=== PATIENT | female | born 1925 | race Caucasian/White ===

== ENCOUNTER 2016-05-21 08:16 | Emergency (ER) | payer MEDICARE ==
[2016-05-21 08:35] VITALS: BP 145/51
--- NOTE | 2016-05-21 08:53 | ED ---
Head Injury - HPI Summary HPI Summary: 5 falls in the last few months when she "forgets to use her walker." She fell a few weeks ago and she has had some right parietal pain and two days ago she fell and hit Left forehead. no neurologic deficits or vision changes. no blood thinners including no aspirin. - History Of Current Complaint Chief Complaint: UCHeadInjury Stated Complaint: HEAD INJURY/FALL Time Seen by Provider: 05/21/16 08:46 Hx Obtained From: Patient, Family/[employer] Mechanism Of Injury: Fall From A Standing Position Onset/Duration: Traumatic Onset of Pain: Immediate Severity Currently: Mild Severity Initially: Moderate Location of Head Injury: Frontal, Parietal Character: Dull Aggravating Factor(s): Movement Alleviating Factor(s): Rest Associated Signs And Symptoms: Negative, Memory Loss - she has had some memory loss but this is not a sudden onset issue related to the falls. - Risk Factors SDH Risk Factor: Negative - Allergies/Home Medications Allergies/Adverse Reactions: Allergies Allergy/AdvReac Type Severity Reaction Status Date / Time No Known Allergies Allergy Verified 11/13/13 08:35 PMH/Surg Hx/FS Hx/Imm Hx Endocrine/Hematology History: Reports: Hx Thyroid Disease Cardiovascular History: Reports: Hx Hypertension Musculoskeletal History: Denies: Hx Rheumatoid Arthritis, Hx Osteoporosis - Cancer History Cancer Type, Location and Year: breast cancer Hx Chemotherapy: No Hx Radiation Therapy: No - Surgical History Surgery Procedure, Year, and Place: gallbladder, R masectomy Infectious Disease History: No Infectious Disease History: Denies: Traveled Outside the [place] in Last 30 Days - Family History Known Family History: Positive: None - no related family history to this fall. - Social History Occupation: Retired Lives: With Family Alcohol Use: None Substance Use Type: Reports: None Smoking Status (MU): Never Smoked Tobacco Review of Systems Negative: Blurred Vision, Diplopia ENT: Negative Negative: Epistaxis, Dental Pain, Sore Throat, Ear Ache, Nasal Discharge Cardiovascular: Negative Respiratory: Negative Gastrointestinal: Negative Musculoskeletal: Negative - denies neck pain. she points to some pain inthe right parietal area and left forehead alone. Psychological: Normal All Other Systems Reviewed And Are Negative: Yes Physical Exam Triage Information Reviewed: Yes Vital Signs On Initial Exam: Initial Vitals Temp Pulse Resp BP Pulse Ox 98.1 F 61 16 145/51 100 05/21/16 08:25 05/21/16 08:25 05/21/16 08:25 05/21/16 08:25 05/21/16 08:25 Vital Signs Reviewed: Yes Appearance: Positive: Well-Appearing, No Pain Distress, Well-Nourished, Signs of Trauma - L forehead brusing without deformity or angela off. neg ha, racoon, csf rhinorrhea, hemotympanum.. Negative: Pain Distress Skin: Positive: Warm, Skin Color Reflects Adequate Perfusion Head/Face: Positive: Normal Head/Face Inspection - normal facial bones without tenderness or step off, normal except for bruising. there is no hematoma. Eyes: Positive: Normal, EOMI, LYNN, Conjunctiva Clear. Negative: Conjunctiva Inflammed ENT: Positive: Normal ENT inspection, Hearing grossly normal, Pharynx normal, Pharyngeal erythema, TMs normal. Negative: Nasal congestion, Nasal drainage, TM bulging, Trismus, Muffled/hoarse voice, Dental tenderness Dental: Negative: Percussion Tenderness @, Gross Decay/Caries @ Neck: Positive: Supple, Nontender, No Lymphadenopathy. Negative: Nuchal Rigidity, Tenderness @ - she has no midline tenderness but has some pain in the parietal area with neck extension. Respiratory/Lung Sounds: Positive: Clear to Auscultation, Breath Sounds Present , Decreased Breath Sounds Cardiovascular: Positive: Normal, RRR, Pulses are Symmetrical in both Upper and Lower Extremities Abdomen Description: Positive: Nontender, No Organomegaly, Soft Musculoskeletal: Positive: Normal - no extremity, spine, collar bone, proximal humerus tenderness.. Negative: Edema Left, Edema Right Neurological: Positive: Normal, Sensory/Motor Intact, CN Intact II-III, Reflexes Intact, Facial Symmetry, Speech Normal. Negative: Receptive Aphasia, Expressive Aphasia, Cerebellar Dysfunction, EOM Palsy, Facial Droop, Focal Deficit @, Slurred Speech, Dysphagia, Dysarthric Aphasia, Pronator Drift Present Psychiatric: Positive: Normal Diagnostics - Vital Signs Vital Signs Temp Pulse Resp BP Pulse Ox 05/21/16 08:25 98.1 F 61 16 145/51 100 - Laboratory Lab Statement: Any lab studies that have been ordered have been reviewed, and results considered in the medical decision making process. Head Injury Course/Dx Assessment/Plan: We talked at length about falls, memory loss lately and aging process. she lives with her very attentive . she has a walker with her today but at times "forgets" to use it. was told to arrange f/u with pcp to discuss this new process and early signs of dementia. she does not drive. - Diagnoses Differential Diagnosis/HQI/PQRI: Cerebral Contusion, Cervical Sprain, Concussion With LOC, Concussion Without LOC, Contusion, Hematoma, Intracranial Bleed, Nasal Fracture, Orbital Fracture, Skull Fracture, Zygomatic Fracture Provider Diagnoses: Contusion of face, Facial bruising, Facial contusion, Fall Discharge - Discharge Plan Condition: Stable Disposition: HOME Patient Education Materials: Fall Prevention (ED), Head Injury (ED) Referrals: Srikanth Garza MD [Primary Care Provider] - 1 Week
--- NOTE | 2016-05-21 09:39 | RAD ---
INDICATION: Injury COMPARISON: None TECHNIQUE: Noncontrast axial source images were acquired from the skull base to the vertex. FINDINGS: Ventricles/sulci: There is cortical atrophy with compensatory dilatation of the CSF spaces. Brain parenchyma: There is periventricular and subcortical white matter change compatible with chronic ischemia. Intracranial hemorrhage:None. Extra-axial spaces: There are no abnormal extra axial fluid collections or evidence of extra-axial mass. Calvarium: There is no calvarial fracture or other calvarial abnormality. Scalp: There is no evidence of scalp or extracalvarial soft tissue abnormality. Paranasal sinuses/mastoid: The paranasal sinuses and mastoid air cells are clear. Other: None. IMPRESSION: CORTICAL ATROPHY WITH CHRONIC MICROVASCULAR ISCHEMIC CHANGES. NO ACUTE FINDINGS.
--- NOTE | 2016-05-21 10:07 | RAD ---
Indication: Fall, neck injury. CT of the cervical spine was obtained in the axial plane. Sagittal and coronal reconstructed images were obtained. Degenerative changes of the atlantoaxial joint is noted. At C2-C3 there is no fracture. Mild facet arthropathy is noted. No central At C3-C4 on the lunar ridge, bilateral vertebral hypertrophy and bilateral facet arthropathy is noted. Bilateral foraminal stenosis is noted. At C4-C5 degenerative disc disease with facet arthropathy is noted. No definite foraminal stenosis is noted. C5-C6 spondylitic ridge, bilateral uncovertebral joint hypertrophy and bilateral arthropathy results in bilateral foraminal At C6-C7 bridging syndesmophytes are noted. Degenerative disc disease with bilateral effusions hypertrophy and facet arthropathy with bilateral foraminal stenosis is noted. At C7-T1 bridging syndesmophytes are noted. Bilateral uncovertebral hypertrophy and facet arthropathy is noted resulting in bilateral foraminal stenosis. IMPRESSION: MULTILEVEL DEGENERATIVE DISC DISEASE WITHOUT DEFINITE EVIDENCE OF FRACTURE. MULTIPLE LEVELS OF BILATERAL UNCOVERTEBRAL HYPERTROPHY AND BILATERAL FORAMINAL STENOSIS IS NOTED.
== END 2016-05-21 10:32 | disposition home or self-care (01) ==
LOC: UCCORT 08:16
DX: S00.83XA Contusion of other part of head, initial encounter (principal); W19.XXXA Unspecified fall, initial encounter; Z91.81 History of falling; Y93.9 Activity, unspecified; Y92.9 Unspecified place or not applicable; M50.321 Other cervical disc degeneration at C4-C5 level
CPT/HCPCS: 70450; 72125; 99211; G0463